=== PATIENT | female | born 1995 | race African-American/Black ===

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

== ENCOUNTER 2017-08-02 09:56 | Emergency (ER) | payer MEDICAID ==
[~2017-08-02] VITALS: Ht 180.3 cm; Wt 90.7 kg
[~2017-08-02 09:56] MED LIST: DOXY100T2 PO; METR500T PO
[2017-08-02 11:52] LABS: BILIRUBIN,URINE NEGATIVE (NEGATIVE); CLARITY,URINE CLEAR; COLOR,URINE YELLOW; GLUCOSE, URINE (UA) NEGATIVE (NEGATIVE); KETONES,URINE NEGATIVE (NEGATIVE); LEUKOCYTE ESTERASE ,URINE 2+ (NEGATIVE); NITRITE,URINE NEGATIVE (NEGATIVE); PH,URINE 7 (5-9); PROTEIN,URINE NEGATIVE (NEGATIVE); UROBILINOGEN,URINE NORMAL (NORMAL)
[2017-08-02] MEDS ORDERED: KETOROLAC 30 MG/ML VIAL IVP STA (12:00)
[2017-08-02 12:14] LABS: BASOPHILS % (AUTO) 1 % (0-10); EOSINOPHILS # (AUTO) 0.2 10^3/uL (0.0-0.3); EOSINOPHILS % (AUTO) 2 % (0-10); HEMATOCRIT 38 % (35-52); HEMOGLOBIN 12.4 G/DL (11.5-16.0); LYMPHOCYTES # (AUTO) 2.5 X 10^3 (1.0-4.0); LYMPHOCYTES % (AUTO) 21 % (12-44); MEAN CORPUSCULAR HEMOGLOBIN 27 PG (25-34); MEAN CORPUSCULAR HGB CONC 32 G/DL (32-36); MEAN CORPUSCULAR VOLUME 83 FL (80-99); MEAN PLATELET VOLUME 10.1 FL (7.4-10.4); MONOCYTES % (AUTO) 8 % (0-12); NEUTROPHILS # (AUTO) 8.4 X 10^3 (1.8-7.8); NEUTROPHILS % (AUTO) 69 % (42-75); PLATELET COUNT 335 10^3/uL (130-400); RED BLOOD COUNT 4.63 10^6/uL (4.35-5.85); WHITE BLOOD COUNT 12.2 10^3/uL (4.3-11.0)
[2017-08-02 12:15] LABS: BACTERIA,URINE FEW /HPF; SQUAMOUS EPITHELIAL CELL,UR 0-2 /HPF
[2017-08-02 12:15] LABS: BASOPHILS # (AUTO) 0.1 10^3/uL (0.0-0.1)
[2017-08-02] MEDS ORDERED: NS 100 ML (IVPB) BAG IV ONE (12:15)
[2017-08-02] MEDS ORDERED: IOHEXOL 350 MG/ML 100 ML (OMNIPAQUE 350) VIAL IV ONE (12:15)
[2017-08-02 12:34] LABS: ALANINE AMINOTRANSFERASE 18 U/L (0-55); ALKALINE PHOSPHATASE 78 U/L (40-136); BILIRUBIN,TOTAL 0.5 MG/DL (0.1-1.0); BUN/CREATININE RATIO 15; CARBON DIOXIDE 23 MMOL/L (21-32); CHLORIDE 108 MMOL/L (98-107); CREATININE SERUM 0.74 MG/DL (0.60-1.30); GFR ESTIMATED > 60; GLUCOSE 85 MG/DL (70-105); POTASSIUM 4.3 MMOL/L (3.6-5.0); SODIUM 138 MMOL/L (135-145); TOTAL PROTEIN 7.2 GM/DL (6.4-8.2)
--- NOTE | 2017-08-02 12:54 | ED GU-Female ---
General Chief Complaint: Abdominal/GI Problems Stated Complaint: VAGINAL PAIN Nursing Triage Note: Patient advises left lower quadrant pain for approx. 1 year that has become progressively worse. She advises she feels a small mass in the area of concern. Nursing Sepsis Screen: No Definite Risk History of Present Illness Date Seen by Provider: Aug 02, 2017 Time Seen by Provider: 11:45 Initial Comments 22 year old -[place] female reports for left lower quadrant pain, she reports that it has been present since last summer. She is sexually active with one partner at this time, she had an IUD but it fell out. She is using condoms sometimes. She has been treated for chlamydia in the past. She denies any vaginal discharge. Her last menstrual cycle was 07/09/17, she noticed trace amount of vaginal spotting last night. She's had no vaginal bleeding today. She has taken no Tylenol or ibuprofen products for pain. Timing/Duration: intermittent Severity/Quality: mild, moderate Location: RLQ Radiation: none Sexual [place] History: single partner Modifying Factors: Improves With Resting Associated Symptoms: abdominal pain, No dysuria, No fever/chills, No loss of bladder control, No lower back pain, No nausea/vomiting, No polyuria, No syncope , No urinary frequency Allergies and Home Medications Allergies Coded Allergies: lactose (Verified Adverse Reaction, Mild, diarrhea, 10/08/11) Home Medications Ciprofloxacin HCl 500 Mg Tablet, 500 MG PO BID Prescribed by: HARINI MARIN on 08/02/17 1317 Doxycycline Hyclate 100 Mg Tablet, 100 MG PO BID Prescribed by: NOELLE SOSA on 11/25/16 1701 Metronidazole 500 Mg Tablet, 500 MG PO BID Prescribed by: NOELLE SOSA on 11/25/16 170 Patient Home Medication List Home Medication List Reviewed: Yes Constitutional: no symptoms reported, see HPI Gastrointestinal: RLQ, abdominal pain (LLQ), No loss of appetite, No nausea, No vomiting, other (mass left lower quadrant) Genitourinary: see HPI, denies discharge, denies hematuria, denies pain, denies urgency : No LMP: Jul 09, 2017 All Other Systemes Reviewed Negative Unless Noted: Yes Past Qhpxwzz-Gawkil-Aomzim Hx Patient Social History Alcohol Use: Denies Use Recreational Drug Use: No Type Used: Cigarettes 2nd Hand Smoke Exposure: Yes Recent Foreign Travel: No Contact w/Someone Who Travel: No Recent Infectious Disease Expo: No Recent Hopitalizations: No Physical Abuse: No Sexual Abuse: No Seasonal Allergies Seasonal Allergies: No Surgeries History of Surgeries: No Respiratory History of Respiratory Disorde: No Cardiovascular History of Cardiac Disorders: No Neurological History of Neurological Disord: No Reproductive System : No Last Menstrual Period: Jul 09, 2017 Hx : 1 Hx Para: 1 Hx Total # of Abortions (Spona: 0 Hx Reproductive Disorders: No Sexually Transmitted Disease: Yes (Chlamydia) Female Reproductive Disorders: Menstrual Problems, Pelvic Inflammatory Dis Genitourinary History of Genitourinary Disor: No Gastrointestinal History of Gastrointestinal Di: No Musculoskeletal History of Musculoskeletal Dis: No Endocrine History of Endocrine Disorders: No HEENT History of HEENT Disorders: No Cancer History of Cancer: No Psychosocial History of Psychiatric Problem: No Suicide Risk Score: 0 Integumentary History of Skin or Integumenta: No Blood Transfusions History of Blood Disorders: No Reviewed Nursing Assessment Reviewed/Agree w Nursing PMH: Yes Physical Exam Vital Signs Vital Signs - First Documented 08/02/17 11:55 Temp 98.0 Pulse 86 Resp 14 B/P (MAP) 123/85 (98) Pulse Ox 98 O2 Delivery Room Air Capillary Refill : Less Than 3 Seconds General Appearance: WD/WN, no apparent distress HEENT: PERRL/EOMI, normal ENT inspection, TMs normal, pharynx normal Neck: non-tender, full range of motion, supple, normal inspection Cardiovascular: normal peripheral pulses, regular rate, rhythm, no murmur Respiratory: chest non-tender, lungs clear, normal breath sounds Gastrointestinal: normal bowel sounds, non tender, soft, mass (trace tenderness with palpable mass in the left lower quadrant, mobile and soft) Neurologic/Psychiatric: no motor/sensory deficits, alert, normal mood/affect, oriented x 3 Skin: normal color, warm/dry Progress/Results/Core Measures Suspected Sepsis Recent Fever Within 48 Hours: No Infection Criteria Present: None New/Unexplained Altered Menta: No Sepsis Screen: No Definite Risk Sepsis Diagnosis: SIRS Temperature:98.0 Pulse: 86 Respiratory Rate: 14 Laboratory Tests 08/02/17 12:07: White Blood Count 12.2H Blood Pressure 123 /85 Mean: 98 Laboratory Tests 08/02/17 12:07: Creatinine 0.74, Platelet Count 335, Total Bilirubin 0.5 Results/Orders Lab Results Laboratory Tests Test 08/02/17 11:10 08/02/17 12:07 Range/Units Urine Color YELLOW Urine Clarity CLEAR Urine pH 7 5-9 Urine Specific [place] 1.005 L 1.016-1.022 Urine Protein NEGATIVE NEGATIVE Urine Glucose (UA) NEGATIVE NEGATIVE Urine Ketones NEGATIVE NEGATIVE Urine Nitrite NEGATIVE NEGATIVE Urine Bilirubin NEGATIVE NEGATIVE Urine Urobilinogen NORMAL NORMAL MG/DL Urine Leukocyte Esterase 2+ H NEGATIVE Urine RBC (Auto) NEGATIVE NEGATIVE Urine RBC NONE /HPF Urine WBC 5-10 H /HPF Urine Squamous Epithelial Cells 0-2 /HPF Urine Crystals NONE /LPF Urine Bacteria FEW H /HPF Urine Casts NONE /LPF Urine Mucus NEGATIVE /LPF Urine Culture Indicated YES White Blood Count 12.2 H 4.3-11.0 10^3/uL Red Blood Count 4.63 4.35-5.85 10^6/uL Hemoglobin 12.4 11.5-16.0 G/DL Hematocrit 38 35-52 % Mean Corpuscular Volume 83 80-99 FL Mean Corpuscular Hemoglobin 27 25-34 PG Mean Corpuscular Hemoglobin Concent 32 32-36 G/DL Red Cell Distribution Width 18.0 H 10.0-14.5 % Platelet Count 335 130-400 10^3/uL Mean Platelet Volume 10.1 7.4-10.4 FL Neutrophils (%) (Auto) 69 42-75 % Lymphocytes (%) (Auto) 21 12-44 % Monocytes (%) (Auto) 8 0-12 % Eosinophils (%) (Auto) 2 0-10 % Basophils (%) (Auto) 1 0-10 % Neutrophils # (Auto) 8.4 H 1.8-7.8 X 10^3 Lymphocytes # (Auto) 2.5 1.0-4.0 X 10^3 Monocytes # (Auto) 1.0 0.0-1.0 X 10^3 Eosinophils # (Auto) 0.2 0.0-0.3 10^3/uL Basophils # (Auto) 0.1 0.0-0.1 10^3/uL Sodium Level 138 135-145 MMOL/L Potassium Level 4.3 3.6-5.0 MMOL/L Chloride Level 108 H 98-107 MMOL/L Carbon Dioxide Level 23 21-32 MMOL/L Anion Gap 7 5-14 MMOL/L Blood Urea Nitrogen 11 7-18 MG/DL Creatinine 0.74 0.60-1.30 MG/DL Estimat Glomerular Filtration Rate > 60 BUN/Creatinine Ratio 15 Glucose Level 85 70-105 MG/DL Calcium Level 9.0 8.5-10.1 MG/DL Total Bilirubin 0.5 0.1-1.0 MG/DL Aspartate Amino Transf (AST/SGOT) 18 5-34 U/L Alanine Aminotransferase (ALT/SGPT) 18 0-55 U/L Alkaline Phosphatase 78 40-136 U/L Total Protein 7.2 6.4-8.2 GM/DL Albumin 4.0 3.2-4.5 GM/DL My Orders Orders - HARINI MARIN Urine Bedside (08/02/17 11:35) Ua Culture If Indicated (08/02/17 11:35) Ketorolac Injection (Toradol Injection) (08/02/17 12:00) Cbc With Automated Diff (08/02/17 12:00) Comprehensive Metabolic Panel (08/02/17 12:00) Ct Abdomen/Pelvis W (08/02/17 12:00) Saline Lock/Iv-Start (08/02/17 12:00) Urine Culture (08/02/17 11:10) Iohexol Injection (Omnipaque 350 Mg/Ml 1 (08/02/17 12:15) Ns (Ivpb) (Sodium Chloride 0.9% Ivpb Bag (08/02/17 12:15) Medications Given in ED Current Medications Medications Dose Ordered Sig/Skye Route Start Time Stop Time Status Last Admin Dose Admin Iohexol 100 ml ONCE ONCE IV 08/02/17 12:15 08/02/17 12:21 DC 08/02/17 12:24 100 ML Sodium Chloride 100 ml ONCE ONCE IV 08/02/17 12:15 08/02/17 12:21 DC 08/02/17 12:24 100 ML Vital Signs/I&O Vital Sign - Last 12Hours 08/02/17 08/02/17 11:55 13:30 Temp 98.0 Pulse 86 71 Resp 14 14 B/P (MAP) 123/85 (98) 113/79 Pulse Ox 98 98 O2 Delivery Room Air Nasal Cannula Capillary Refill : Less Than 3 Seconds Blood Pressure Mean: 98 Point of Care Testing Urine -Bedside: Negative Progress Note : Time: 11:45 Progress Note Initial evaluation completed, recommended labs and CT with contrast of the pelvis and abdomen. Toradol 30 mg IV for pain. 1230 patient reports improvement in her pain since the Toradol, awaiting results of CT. Labs essentially normal, hemodynamically stable. UA shows evidence of early UTI. 1245 CT results reviewed with the patient, discussed ovarian cyst and treatment options with CHALK TESTER. No specific preventative measures she can take to prevent a rupture. Discharge instructions and return precautions reviewed with the patient. All questions answered. Diagnostic Imaging Diagonstic Imaging: CT Plain Films/CT/US/NM/MRI: abdomen, pelvis Comments NAME: TRACEY HAAS [facility] REC#: [id number] PT STATUS: REG ER : 1995 PHYSICIAN: HARINI MARIN ADMIT DATE: 08/02/17/ER Draft Date of Exam:08/02/17 CT ABDOMEN/PELVIS W PROCEDURE: CT abdomen and pelvis with contrast. TECHNIQUE: Multiple contiguous axial images were obtained through the abdomen and pelvis after administration of intravenous contrast. INDICATION: Left lower quadrant pain Comparison: 11/25/16 Findings: The lung bases are clear. There is mild diffuse hepatic steatosis. No focal hepatic mass is seen. The gallbladder appears unremarkable. The portal vein enhances normally. There is no biliary dilatation. The pancreas, spleen and adrenal glands appear unremarkable. The kidneys appear normal. There is no evidence of appendicitis or other focal inflammatory process. Uterus appears unremarkable. There is a 5.5 cm left ovarian cyst. There is a 2.8 cm right ovarian cyst. There is no free fluid, free air or adenopathy. Abdominal aorta appears normal in caliber. The osseous structures appear unremarkable. Impression: 1. Bilateral ovarian cysts, 5.5 cm on the left and 2.8 cm on the right. 2. No additional abnormality is demonstrated. Dictated on workstation # [id number] Dict: 08/02/17 1258 Trans: 08/02/17 1306 [facility] [id number] Interpreted by: MG REID DO Electronically signed by: Reviewed: Reviewed by Me Departure Impression Impression: Primary Impression: Bilateral ovarian cysts Additional Impressions: Abdominal pain Qualified Codes: R10.30 - Lower abdominal pain, unspecified Urinary tract infection Qualified Codes: N30.00 - Acute cystitis without hematuria Disposition: 01 HOME, SELF-CARE Condition: Stable Departure-Patient Inst. Decision time for Depature: 12:55 Referrals: NO,LOCAL PHYSICIAN (PCP/Family) Primary Care Physician Patient Instructions: Ovarian Cyst (DC) Add. Discharge Instructions: You may use ibuprofen 800 mg every 8 hours for pain. Schedule follow-up with CHALK TESTER of your choice. Return to emergency department for acute abdominal pain that worsens, vaginal discharge, fever greater than 101, or new problems. All discharge instructions reviewed with patient and/or family. Voiced understanding. Scripts Ciprofloxacin HCl (Cipro) 500 Mg Tablet 500 MG PO BID, #6 TAB 0 Refills Prov: HARINI MARIN 08/02/17 HARINI MARIN Aug 02, 2017 12:54
--- NOTE | 2017-08-02 13:06 | Diagnostic Imaging Report ---
PROCEDURE: CT abdomen and pelvis with contrast. TECHNIQUE: Multiple contiguous axial images were obtained through the abdomen and pelvis after administration of intravenous contrast. INDICATION: Left lower quadrant pain Comparison: 11/25/16 Findings: The lung bases are clear. There is mild diffuse hepatic steatosis. No focal hepatic mass is seen. The gallbladder appears unremarkable. The portal vein enhances normally. There is no biliary dilatation. The pancreas, spleen and adrenal glands appear unremarkable. The kidneys appear normal. There is no evidence of appendicitis or other focal inflammatory process. Uterus appears unremarkable. There is a 5.5 cm left ovarian cyst. There is a 2.8 cm right ovarian cyst. There is no free fluid, free air or adenopathy. Abdominal aorta appears normal in caliber. The osseous structures appear unremarkable. Impression: 1. Bilateral ovarian cysts, 5.5 cm on the left and 2.8 cm on the right. 2. No additional abnormality is demonstrated. Dictated by: Dictated on workstation # [id number]
[2017-08-02] MEDS ORDERED: CIPR-225 PO (13:17)
[2017-08-02 13:30] VITALS: BP 113/79
--- OUTSIDE RECORDS SUMMARY | 2017-08-03 09:19 | XMS REPORT ---
Author Author [facility]air [facility] Address [address] [place], [place] [address] Care Team Providers Care Residence Life Director Name Role Phone Uzair Downs PCP Unavailable Bobby Khalil PreferredProvider Allergies and Adverse Reactions Name Reaction Notes NO KNOWN DRUG ALLERGIES Plan of Treatment Planned Activity Comments Planned Date Planned Time Plan/Goal Foot series (complete) 12/11/2011 12:00 AM CBC (Hgb, Hct, RBC, WBC and platelet count), automated 12/10/2016 12:00 AM Medications Name Start Date Expiration [...] by one tablet daily for 4 days. Sprintec (28) 0.25-35 mg-mcg oral tablet 11/18/2016 12/10/2016 take 4 tablets daily for 3 days, 2 tablets daily for 3 days, 1 tablet daily for 3 days. Start new cycle one tablet daily. Sprintec (28) 0.25-35 mg-mcg oral tablet 11/18/2016 12/10/2016 take 4 tablets daily for 3 days, 2 tablets daily for 3 days, 1 tablet daily for 3 days. Start new cycle one tablet daily. never filled prescription Problem List Description Status Onset Headache Active Vital Signs Date Time BP-Sys(mm[Hg] BP-Lesa(mm[Hg]) HR(bpm) RR(rpm) Temp WT HT HC BMI BSA BMI Percentile O2 Sat(%) 12/10/2016 9:07:00 AM 115 mmHg 54 mmHg 68 bpm 98.4 F 205 lbs 69 in 30.27 kg/m2 2.13 m2 93.8 % 11/12/2016 11:22:00 AM 128 mmHg 60 mmHg 74 bpm 98.3 F 216 lbs 69 in 31.8973 kg/m 2.184 m 95.4 % 10/07/2016 11:36:00 AM 130 mmHg [...] 10/04/2015 12:00 AM Depo-Medrol, Per 80 Mg [facility]#[address]-55 Reviewed 10/04/2015 12:00 AM Decadron, Per 1 Mg [facility]# [address]-76 Reviewed 10/11/2015 12:00 AM THER/PROPH/DIAG INJ SC/IM Reviewed 01/10/2016 12:00 AM RADEX SPINE THORACIC 2 VIEWS Reviewed 01/10/2016 12:00 AM CHEST X-RAY 2VW FRONTAL&LATL Reviewed 10/08/2011 12:00 AM Decadron 8 mg [facility]#[id number] Reviewed 10/08/2011 12:00 AM Depo-Medrol 80mg [facility]#[id number] Reviewed 10/11/2011 12:00 AM ASSAY OF INSULIN Reviewed 10/11/2011 12:00 AM ASSAY THYROID STIM HORMONE Reviewed 10/11/2011 12:00 AM ASSAY OF TOTAL THYROXINE Reviewed 12/02/2011 12:00 AM X-RAY EXAM OF TOE(S) Reviewed 11/12/2016 12:00 AM US EXAM PELVIC COMPLETE Reviewed 11/12/2016 12:00 AM TRANSVAGINAL US NON-OB Reviewed 11/12/2016 9:42 PM URINE TEST Reviewed 11/12/2016 12:00 AM ASSAY THYROID STIM HORMONE Reviewed 11/12/2016 12:00 AM ASSAY OF GONADOTROPIN (FSH) Reviewed 11/12/2016 12:00 AM ASSAY OF PROLACTIN Reviewed 11/12/2016 12:00 AM US EXAM PELVIC COMPLETE Reviewed 11/12/2016 12:00 AM TRANSVAGINAL US NON-OB Reviewed 11/12/2016 12:00 AM COMPLETE CBC AUTOMATED Reviewed [...] MANUAL DIFF NOT IND BETA HCG QUANT >77932 mIU/mLBETA HCG QUANT 54429.0 mIU/mLProlactin 32.0 ng/mL 02/13/2015 12:24 PM Results Report Test Results: *Screen Negative* Gest. Age on CollectionDate 15.4 Gestat. Age Based On Ultrasound Maternal Age At TROY 18.2 Race Black Weight 202 Insulin Dep Diabetes No Multiple Gestation No AFP Value 0.0352 ug/mLAFP MoM 1.28 hCG Value 11319.0 mIU/mLhCG MoM 1.23 uE3 Value 0.890 ng /mLuE3 MoM 1.39 LESA Value 209.770 pg/mLDIA MoM 1.30 OSBR [place] 1 [place] [address] DSR (Second Trimester) 1IN 9346 DSR (By [...] IUD mechanical complication Nov 12 2016 11:27AM Abnormal uterine bleeding Dec 10 2016 9:13AM Pelvic inflammatory disease, female Dec 10 2016 9:13AM Chlamydia contact, treated Dec 10 2016 9:13AM Anemia Dec 10 2016 9:13AM Payers Insurance Name Company Name Plan Name Plan Number Policy Number Policy Group Number Start Date [facility] Comm [id number] N/A [facility] [id number] September2010 [facility] [id number] N/A [facility] [id number] Thursday, 2014 [facility] Community Plan of [place] [facility] Comm Plan of [id number] N/A History of Encounters Visit Date Visit Type Provider 12/10/2016 Office visit Uzair Downs MD 11/12/2016 Office visit Yarelis Carreno LOAN ASSOCIATE 10/07/2016 Office visit Yarelis Carreno LOAN ASSOCIATE 01/10/2016 Office visit Bobby Khalil LOAN ASSOCIATE 11/06/2015 Office visit Yarelis Carreno LOAN ASSOCIATE 10/12/2015 Office visit Bobby Khalil LOAN ASSOCIATE 10/04/2015 Office visit Bobby Khalil LOAN ASSOCIATE 09/25/[address] Kelle Klein MD 09/21/[address] Kelle Klein MD 08/24/2015 Office visit Raymon Mclain MD 08/10/[address] Kelle Klein MD 08/10/2015 St. [...] Klein MD 06/14/2015 Office visit Bobby Khalil LOAN ASSOCIATE 06/13/[address] Kelle Klein MD 05/09/[address] Kelle Klein MD 04/10/[address] Kelle Klein MD 03/13/[address] Kelle Klein MD 02/17/2015 Office visit 02/17/2015 Office visit Bobby Khalil LOAN ASSOCIATE 02/13/[address] ANNIE ORR MD 02/09/2015 Office visit Bobby Khalil LOAN ASSOCIATE 01/07/2015 Office visit Felicitas Simons LOAN ASSOCIATE 10/11/2011 Office visit Sukumar Castro DO 10/08/2011 Office visit Sukumar Castro DO 04/16/2011 Office visit Sukumar Castro DO 03/28/2011 Office visit Sukumar Castro DO 09/27/2010 Office visit Sukumar Castro DO
--- OUTSIDE RECORDS SUMMARY | 2017-08-03 09:34 | XMS REPORT | Continuity of Care Document ---
Author Author [facility] Organization [facility] Address Unknown Phone Unavailable Allergies There is no data. Medications There is no data. Problems There is no data. Procedures There is no data. Results There is no data. Encounters ACCT No. Visit Date/Time Discharge Status Pt. Type Provider Facility Loc./Unit Complaint [id number] 12/10/2016 10:06:40 12/10/2016 23:59:59 CLS Outpatient YareliMarlonross Cantu [id number] 11/12/2016 12:03:04 11/12/2016 23:59:59 CLS Outpatient Yarelis Carreno [id number] 10/07/2016 17:35:54 10/07/2016 23:59:59 CLS Outpatient Yarelis Carreno [id number] 01/10/2016 19:44:20 01/10/2016 23:59:59 CLS Outpatient Bobby Khalil [id number] 08/09/2015 15:09:45 08/09/2015 23:59:59 CLS Outpatient Kelle Klein [id number] 08/03/2015 10:46:06 08/03/2015 23:59:59 CLS Outpatient Kelle Klein [id number] 07/27/2015 16:15:15 07/27/2015 23:59:59 CLS Outpatient Kelle Klein [id number] 07/19/2015 15:39:47 07/19/2015 23:59:59 CLS Outpatient Kelle Klein [id number] 07/13/2015 09:05:39 07/13/2015 23:59:59 CLS Outpatient Kelle Klein [id number] 07/05/2015 11:54:04 07/05/2015 23:59:59 CLS Outpatient Kelle Klein [id number] 06/28/2015 16:14:34 06/28/2015 23:59:59 CLS Outpatient Kelle Klein [id number] 06/14/2015 14:07:48 06/14/2015 23:59:59 CLS Outpatient Bobby Khalil [id number] 06/13/2015 16:58:25 06/13/2015 23:59:59 CLS Outpatient Kelle Klein [id number] 05/09/2015 14:39:16 05/09/2015 23:59:59 CLS Outpatient Kelle Klein [id number] 04/10/2015 14:39:28 04/10/2015 23:59:59 CLS Outpatient Kelle Klein [id number] 03/13/2015 16:08:30 03/13/2015 23:59:59 CLS Outpatient Kelle Klein [id number] 02/17/2015 11:08:21 02/17/2015 23:59:59 CLS Outpatient Bobby Khalil [id number] 02/13/2015 11:55:41 02/13/2015 23:59:59 CLS Outpatient Steve Porter [id number] 02/09/2015 18:32:45 02/09/2015 23:59:59 CLS Outpatient Bobby Khalil [id number] 01/07/2015 14:26:46 01/07/2015 23:59:59 CLS Outpatient Felicitas Simons
== END 2017-08-02 13:32 | disposition home or self-care (01) ==
LOC: EDUNIT# 09:56 → ER 09:57
DX: N83.201 Unspecified ovarian cyst, right side (principal); N83.202 Unspecified ovarian cyst, left side; N39.0 Urinary tract infection, site not specified; Z77.22 Contact with and (suspected) exposure to environmental tobacco smoke (acute) (chronic); Z86.19 Personal history of other infectious and parasitic diseases
CPT/HCPCS: 36415; 74177; 80053; 81000; 84703; 85025; 87088